=== PATIENT | male | born 1935 | race Caucasian/White ===

== ENCOUNTER 2022-06-12 07:10 | Day surgery (SDC) | payer MEDICARE ==
[2022-06-05 16:11] LABS: CLARITY,URINE CLEAR (Clear); COLOR,URINE YELLOW (Yellow); GLUCOSE, URINE NEGATIVE (Neg); KETONES,URINE NEGATIVE (Neg); LEUKOCYTE ESTERASE ,URINE NEGATIVE (Neg); NITRITES, URINE NEGATIVE (Neg); OCCULT BLOOD,URINE NEGATIVE (Neg); PROTEIN,URINE TRACE mg/dl (Neg); UROBILINOGEN,URINE 0.2 E.U/dL (0.2-1.0)
[2022-06-05 16:16] LABS: BASOPHILS # (AUTO) 0.1 X10'3 (0-0.2); BASOPHILS % (AUTO) 0.7 % (0-1); EOSINOPHILS # (AUTO) 0.3 X10'3 (0-0.9); EOSINOPHILS % (AUTO) 2.1 % (0-6); LYMPHOCYTES # (AUTO) 0.9 X10'3 (1.1-4.8); LYMPHOCYTES % (AUTO) 7.9 % (21-51); MEAN CORPUSCULAR HEMOGLOBIN 32.8 PG (27.0-31.0); MEAN CORPUSCULAR HGB CONC 31.8 g/dL (33.0-36.5); MEAN PLATELET VOLUME 10.2 FL (7.4-10.4); MONOCYTES # (AUTO) 0.7 X10'3 (0-0.9); NEUTROPHILS % (AUTO) 83.3 % (42-75); PRE OP HEMATOCRIT 35.3 % (42.0-52.0); PRE OP HEMOGLOBIN 11.2 g/dL (14.0-17.9); PRE OP PLATELET COUNT 146 X10'3 (140-440); RED BLOOD COUNT 3.43 X10'6 (4.70-6.10); RED CELL DISTRIBUTION WIDTH 16.9 % (11.5-14.5)
[2022-06-05 16:21] LABS: UA COLLECTION TYPE CLN CATCH MIDSTREAM
[2022-06-05 16:22] LABS: SQUAMOUS EPITHELIAL CELL,UR MODERATE /LPF (FEW)
[2022-06-05 16:23] LABS: BACTERIA,URINE NONE SEEN /HPF (Neg); RBC,URINE 0-2 /HPF (0-2); TRANSITIONAL EPI CELLS,URINE FEW /HPF; WBC,URINE 0-4 /HPF (0-4)
[2022-06-05 16:27] LABS: ALBUMIN 3.5 G/DL (3.4-5.0); ALBUMIN/GLOBULIN RATIO 0.8 (1.1-1.5); ALKALINE PHOSPHATASE 188 IU/L (46-116); BLOOD UREA NITROGEN 35 MG/DL (7-18); BUN/CREATININE RATIO 21.9 (5.4-32.0); CALCIUM 8.8 MG/DL (8.5-10.1); CHLORIDE 108 MMOL/L (99-107); PRE OP ALT 27 U/L (30-65); PRE OP ANION GAP 9 (8-16); PRE OP AST 22 U/L (10-37); PRE OP BILIRUB, TOTAL 0.9 MG/DL (0.0-1.0); PRE OP GLUCOSE 137 MG/DL (70-104); PRE OP POTASSIUM 4.1 MMOL/L (3.4-5.1); PRE OP SODIUM 143 MMOL/L (135-145); TOTAL PROTEIN 7.8 G/DL (6.4-8.2); eGFR 41 ML/MIN
[~2022-06-12] VITALS: Ht 182.9 cm; Wt 70.3 kg
[2022-06-12] VITALS (12 sets, daily range): BP systolic 112–161; BP diastolic 61–86
[~2022-06-12 07:10] MED LIST: CHOL100046 PO; ceFAZolin inj. 2,000 MG in dextrose 5%-water 100 ML IV ONE; famotidine 20mg tablet PO ONE; ringers solution, lacted 1,000 ML IV SCH
[2022-06-12] MEDS ORDERED: BUPIVAcaine/PF 2.5 mg/ml (0.25%) 30ml vial ONE (07:24)
--- NOTE | 2022-06-12 11:45 | NUR ---
STILL AWAITING SURGERY. NO CHANGE IN CONDITION. NO COMPLAINTS.SLEEPING INTERMITTENTLY. DAUGHTER IS NO LONGER AT THE BEDSIDE. IV PATENT LEFT UPPER ARM ON A PUMP.
[2022-06-12] MEDS ORDERED: acetaminophen 1000 MG/100ml vial IV ONE (12:05)
[2022-06-12] MEDS ORDERED: sevoflurane 250ml liquid IH ONE (12:05)
[2022-06-12] MEDS ORDERED: fentaNYL/PF 50MCG/1 ML 2ML syringe ONE (12:10)
[2022-06-12] MEDS ORDERED: midazolam 1 mg/ML 2ml injection ONE (12:13)
[2022-06-12] MEDS ORDERED: rocuronium 10mg/ml inj IV ONE (12:25)
[2022-06-12] MEDS ORDERED: propofol inj 20 ML IV ONE ×2 (12:25→13:54)
[2022-06-12] MEDS ORDERED: LIDOcaine 1%/PF 5ML 10 MG/ML VIAL ONE (12:25)
[2022-06-12] MEDS ORDERED: morphine 2 MG/ML inj. syringe IV PRN (12:40)
[2022-06-12] MEDS ORDERED: ondansetron/PF 4mg/2ml inj IV PRN (12:40)
[2022-06-12] MEDS ORDERED: labetalol 20mg/4ml (5mg/ml) syringe IV PRN (12:40)
[2022-06-12] MEDS ORDERED: ringers solution, lacted 1,000 ML IV SCH (12:40)
[2022-06-12] MEDS ORDERED: proCHLORperazine 10 MG/2 ml inj IV PRN (12:40)
[2022-06-12] MEDS ORDERED: hydrALAZINE 20mg/ml inj. IV PRN (12:40)
[2022-06-12] MEDS ORDERED: meperidine/PF 25mg/ml syringe IV PRN ×3 (12:40)
[2022-06-12] MEDS ORDERED: morphine 4 MG/ML inj SYRINge IV PRN (12:40)
[2022-06-12] MEDS ORDERED: ketorolac tromethamine 15mg/ml inj. IV ONE (12:40)
[2022-06-12] MEDS ORDERED: BUPIVAcaine/PF 2.5 mg/ml (0.25%) 30ml vial IJ ONE (12:52)
[2022-06-12] MEDS ORDERED: dexamethasone sod phosphate 4mg/ml inj. ONE (13:00)
[2022-06-12] MEDS ORDERED: ondansetron/PF 4mg/2ml inj ONE (13:00)
[2022-06-12] MEDS ORDERED: neostigmine methylsulfate 1 MG/ML 10ml vial ONE (13:57)
[2022-06-12] MEDS ORDERED: glycopyrrolate 0.2mg/ml inj ONE (13:57)
[2022-06-12] MEDS ORDERED: sugammadex 200mg/2ml injection IV ONE (14:01)
--- NOTE | 2022-06-12 14:06 | NUR ---
Received from OR via [facility], accompanied by Anesthesiologist and report given by ANITHA Anesthesiologist. PATIENT WAKING UP, NO S/S OF PAIN, V/S WNL, SCD ON , PIV 20G LUE, DERMABONDED LAPS SITES X3 CLOSED CDI TO ABDOMEN. SHEA CATHETER DRAINING CLEAR YELLOW URINE. Addendum: 06/12/22 at 1430 by Nii Sorto RN Amended: Links added.
--- NOTE | 2022-06-12 16:06 | NUR ---
ALL DISCHARGE CRITERIA HAS BEEN MET. VSS, PAIN AT A TOLERABLE LEVEL, VOIDING AND ABLE TO SAFELY AMBULATE AND TRANSFER SELF. IV TAKEN OUT WITHOUT ANY COMPLICATIONS. ALL DISCHARGE INSTRUCTIONS COVERED WITH PATIENT AND ALL QUESTIONS ANSWERED. PATIENT TAKEN OUT VIA WHEELCHAIR WITH ALL BELONGINGS TO PERSONAL VEHICLE WHERE FAMILY/FRIEND DROVE PATIENT HOME. I HAVE DEMONSTRATED F/C CARE AND PATIENT HAS VERBALIZED UNDERSTANDING ON HOME CARE. EDUCATION PACKET GIVEN TO PATIENT WELL FOR F/C MANAGEMENT FOR HOME. PATIENT AGREES HE WILL CALL DR WATERS OFFICE ON FRIDAY AM FOR F/C D/C APPT IN OFFICE. Addendum: 06/12/22 at 1617 by Nii Sorto RN Amended: Links added.
== END 2022-06-12 16:06 | disposition home or self-care (01) ==
LOC: PAS 07:10
PROVIDERS: ATTEND Surgery
DX: K40.90 Unilateral inguinal hernia, without obstruction or gangrene, not specified as recurrent (principal); Z79.899 Other long term (current) drug therapy; Z98.890 Other specified postprocedural states; Z79.01 Long term (current) use of anticoagulants; Z87.01 Personal history of pneumonia (recurrent); Z80.42 Family history of malignant neoplasm of prostate
CPT/HCPCS: 36415; 49650; 80053; 81001; 82948; 85025; 87811; 93005; C1781; J0690; J1100; J1885; J2175; J2250; J2270; J2405; J2704; J2710; J3010; J3490; J7030; J7060; J7120; Z7506; Z7508; Z7512; A4215; A4340; A4618; J0131